=== PATIENT | male | born 1995 | race African-American/Black ===

== ENCOUNTER 2021-09-05 13:05 | Emergency (ER) | payer SELFPAY ==
[~2021-09-05] VITALS: Ht 175.3 cm; Wt 68.0 kg
[2021-09-05 13:19] VITALS: BP 123/81
--- NOTE | 2021-09-05 13:48 | PHYS DOC ---
Past History Past Surgical History: Other Additional Past Surgical Histo: kidney surgery Alcohol Use: Occasionally General Adult EDM: Chief Complaint: SEXUALLY TRANSMITTED DISEASE HPI: HPI: 26-year-old male presents with concern for STD. He has been having sexual relations with a partner who told him she has herpes. She takes daily suppressive medication. The patient is still very worried that he could have it. He has no symptoms. No discharge. No rash. He has no other complaints at this time. Review of Systems: Review of Systems: Constitutional: Denies fever or chills Eyes: Denies change in visual acuity HENT: Denies nasal congestion or sore throat Respiratory: Denies cough or shortness of breath Cardiovascular: Denies chest pain or edema GI: Denies abdominal pain, nausea, vomiting, bloody stools or diarrhea : Denies dysuria Musculoskeletal: Denies back pain or joint pain Integument: Denies rash Neurologic: Denies headache, focal weakness or sensory changes Endocrine: Denies polyuria or polydipsia Lymphatic: Denies swollen glands Psychiatric: Denies depression or anxiety Allergies: Allergies: Allergies Coded Allergies Type Severity Reaction Last Updated Verified No Known Drug Allergies 09/05/21 No Physical Exam: PE: Constitutional: Well developed, well nourished, no acute distress, non-toxic appearance. [] HENT: Normocephalic, atraumatic, bilateral external ears normal, oropharynx moist, no oral exudates, nose normal. [] Eyes: PERRLA, EOMI, conjunctiva normal, no discharge. [] Neck: Normal range of motion, no tenderness, supple, no stridor. [] Cardiovascular:Heart rate regular rhythm, no murmur [] Lungs & Thorax: Bilateral breath sounds clear to auscultation [] Abdomen: Bowel sounds normal, soft, no tenderness, no masses, no pulsatile masses. [] Skin: Warm, dry, no erythema, no rash. [] Back: No tenderness, no CVA tenderness. [] Extremities: No tenderness, no cyanosis, no clubbing, ROM intact, no edema. [] Neurologic: Alert and oriented X 3, normal motor function, normal sensory function, no focal deficits noted. [] Psychologic: Affect normal, judgement normal, mood normal. [] Current Patient Data: Vital Signs: Vital Signs Date Time Temp Pulse Resp B/P (MAP) Pulse Ox O2 Delivery O2 Flow Rate FiO2 09/05/21 13:19 98.1 70 14 123/81 (95) 100 EKG: EKG: [] Radiology/Procedures: Radiology/Procedures: [] Heart Score: C/O Chest Pain: N/A Risk Factors: Risk Factors: DM, Current or recent (<one month) smoker, HTN, HLP, family history of CAD, obesity. Risk Scores: Score 0 - 3: 2.5% MACE over next 6 weeks - Discharge Home Score 4 - 6: 20.3% MACE over next 6 weeks - Admit for Clinical Observation Score 7 - 10: 72.7% MACE over next 6 weeks - Early Invasive Strategies Course & Med Decision Making: Course & Med Decision Making Pertinent Labs and Imaging studies reviewed. (See chart for details) The patient showed me a couple of areas that he was concerned about. They did not appear to be more than irregularities of the subcutaneous fat or an ingrown hair scar. We talked about STDs and their symptoms. Patient denies having any of those. He is reassured. He is stable for discharge at this time. Urinalysis and urine GC chlamydia are pending. [] Dragon Disclaimer: Dragon Disclaimer: This electronic medical record was generated, in whole or in part, using a voice recognition dictation system. Departure Departure: Impression: Primary Impression: Concern about STD in male without diagnosis Disposition: 01 HOME / SELF CARE / HOMELESS Condition: STABLE Referrals: PCP,NO (PCP) Patient Instructions: Genital Herpes, Sexually Transmitted Disease, [id number] BRENNEN GERARDO DO Sep 05, 2021 13:48
[2021-09-05 14:23] LABS: BACTERIA,URINE 0 /HPF (0-FEW); BILIRUBIN,URINE NEG (NEG); CLARITY,URINE CLEAR; COLOR,URINE YELLOW; GLUCOSE,URINE NEG (NEG); NITRITE,URINE NEG (NEG); SPERM,URINE PRESENT /HPF; SQUAMOUS EPITHELIAL CELL,UR FEW /LPF; UROBILINOGEN,URINE 0.2 mg/dL (0.2 mg/dL)
== END 2021-09-05 13:50 | disposition home or self-care (01) ==
LOC: ER 13:05
DX: A64 Unspecified sexually transmitted disease (principal)
CPT/HCPCS: 36415; 81001; 87086; 87491; 87591; 99283